=== PATIENT | female | born 1980 | race Caucasian/White ===

== ENCOUNTER 2017-12-31 13:55 | Outpatient (CLI) | payer OTHER ==
--- NOTE | 2017-12-31 14:57 | RAD ---
THREE VIEW LUMBAR SPINE SERIES: INDICATION: Disability evaluation. COMPARISON: No prior comparison. FINDINGS: There is accentuation of lumbar lordosis, inferiorly. No significant malalignment otherwise depicted . There is mild degenerative change of the lumbar spine. No obvious acute compression deformity. A slight degree of superior end plate height loss of L4 is likely chronic. IMPRESSION: No acute abnormalities of the lumbar spine. POS: [facility]
== END 2017-12-31 13:56 | disposition home or self-care (01) ==
LOC: NAV RAD 13:55
PROVIDERS: ATTEND Family Medicine
DX: M54.5 Low back pain (principal)
CPT/HCPCS: 72100